=== PATIENT | female | born 1960 | race Caucasian/White ===

== ENCOUNTER 2016-11-12 06:58 | Day surgery (SDC) | payer OTHER ==
[~2016-11-12] VITALS: Ht 157.5 cm; Wt 69.6 kg
[~2016-11-12 06:58] MED LIST: ASPI-664 PO; DOCU-144 PO; OMEP40CA6 PO; RANI300T3 PO; ZOC10 PO
[2016-11-12 07:32] VITALS: Ht 157.5 cm; Wt 69.6 kg
[2016-11-12 08:54] VITALS: BP 163/83; PULSE 58; RESP 20
[2016-11-12 09:35] VITALS: BP 133/81; PULSE 64; RESP 18
[2016-11-12 09:45] VITALS: BP 150/78; PULSE 66; RESP 18
[2016-11-12] MEDS ORDERED: MIDAZOLAM 1 MG/ML 2 ML INJ ONE ×3 (09:48)
[2016-11-12] MEDS ORDERED: FENTAnyl 50 MCG/ML VIAL ONE (09:49)
[2016-11-12 10:00] VITALS: BP 155/83; PULSE 60; RESP 18
--- NOTE | 2016-11-12 16:36 | GILP ---
DATE OF PROCEDURE: 11/12/2016 INDICATION: A 55-year-old female undergoing this procedure for abdominal pain and heartburn and col onoscopy for colon cancer screening. The risks of the procedure, related and unrelated complication s, sedative risks, alternatives discussed and informed consent was obtained. DESCRIPTION OF PROCEDURE: 1. The patient was brought to the GI lab, sedated with Versed at 5 mg, fentanyl 100 mg. After optim al sedation, scope was passed with much ease into esophagus which was grossly within normal limits e xcept for the gastric ____ in the cervical esophagus. She also had a large gastric patch, about 3 cm in length, 3 mm above the Z line. This was starting at 35 cm. The Z line was at 38 cm. Scope w as passed with much ease into the stomach which revealed chronic gastritis. Duodenum, first and sec ond part was within normal limits. Biopsy taken from the antrum to rule out H. pylori infection. B iopsy also taken from gastric patch near the Z line to rule out Morales's. So retroversion in the s tomach was normal. Scope was then straightened out and removed with good patient tolerance. IMPRESSION 1. Cervical or gastric inlet. 2. Gastric patch just above the Z-line. 3. Z line was regular which was at 38 cm. 4. Gastritis. 5. Normal duodenum. PLAN: Review histopathology. COLONOSCOPY REPORT: The patient was turned around, scope was passed with much ease into the rectum and advanced slowly through sigmoid, descending, transverse colon all the way into cecum. Appendice al orifice identified. Rest of the colon was normal. She had small mouth multiple diverticula in t he right side of the colon. In the transverse colon, there was a flat polyp 7 mm in diameter, succe ssfully removed by 2 cold biopsy bites. The rest of the colon appeared normal except for the diver ticular multiple small mouth seen in the left side of the colon. There was some stool in the rectum and in the sigmoid colon precluding the visibility by 5 to 10%, 2 to 3 diminutive flat polyps iden tified in the rectum. Two of them were biopsied. It appeared to be hyperplastic small hemorrhoids identified. IMPRESSION: 1. Diverticulosis, both left and right side of the colon. Small mouth, multiple. 2. Two polyps removed, one from the transverse colon and x2 from the rectum, all were removed by co ld biopsy forceps. 3. Negative all the way into cecum. 4. Preparation was adequate. PLAN: Review the histopathology and based on [employer] criteria will dec christine regarding the colonoscopy whether it needs to be done in 5 years or 10 years. Patient needs to stay on high-fiber diet for the diverticulosis. Dictated By: KELSEY SUMNER/DASHA Conf#: [id number] DID#: [id number] CC: KELSEY HINES MD;*EndCC*
== END 2016-11-12 13:36 | disposition home or self-care (01) ==
LOC: GIL 06:58
PROVIDERS: ATTEND Internal Medicine Gastroenterology
DX: Z12.11 Encounter for screening for malignant neoplasm of colon (principal); D12.3 Benign neoplasm of transverse colon; K62.1 Rectal polyp; K57.90 Diverticulosis of intestine, part unspecified, without perforation or abscess without bleeding
CPT/HCPCS: 43239; 45380; 88305; 88312; J2250; J3010; Z7610